=== PATIENT | male | born 1960 | race Caucasian/White ===

== ENCOUNTER 2017-03-30 13:55 | Emergency (ER) | payer OTHER ==
[~2017-03-30] VITALS: Ht 165.1 cm; Wt 108.2 kg
[2017-03-30] MEDS ORDERED: HTN (14:00)
[2017-03-30] MEDS ORDERED: METF500T4 PO (14:00)
[2017-03-30] MEDS ORDERED: SITA25 PO (14:00)
[2017-03-30] MEDS ORDERED: CHOLESTEROL (14:00)
[2017-03-30 14:08] LABS: GLUCOSE,POINT OF CARE 138 MG/DL (70-110)
[2017-03-30] MEDS ORDERED: SIMV10TA6 PO (14:57)
[2017-03-30] MEDS ORDERED: POVIDONE-IODINE 10% 15 ML SOLUTION UD TP ONE (15:00)
[2017-03-30] MEDS ORDERED: HYDROCODONE/ACETAMINOPHEN 5-325 MG TABLET PO ONE (15:00)
[2017-03-30 16:04] VITALS: BP 137/83
== END 2017-03-30 16:12 | disposition home or self-care (01) ==
LOC: EMS 13:58
DX: L03.012 Cellulitis of left finger (principal); I10 Essential (primary) hypertension; E11.9 Type 2 diabetes mellitus without complications; E78.00 Pure hypercholesterolemia, unspecified
CPT/HCPCS: 10060; 82962; 99283

== ENCOUNTER 2017-05-26 13:22 | Emergency (ER) | payer OTHER ==
[~2017-05-26] VITALS: Ht 165.1 cm; Wt 109.1 kg
[~2017-05-26 13:22] MED LIST: HTN; METF500T4 PO; SIMV10TA6 PO; SITA25 PO
[2017-05-26] MEDS ORDERED: FURO40 PO (13:41)
[2017-05-26] MEDS ORDERED: CARV6 PO (13:41)
[2017-05-26] MEDS ORDERED: LISI-660 PO (13:41)
[2017-05-26 13:47] LABS: GLUCOSE,POINT OF CARE 187 MG/DL (70-110)
[2017-05-26] MEDS ORDERED: PERTUSS(ACELL),DIPH,TET VAC/PF 0.5 ML VIAL IM ONE (16:00)
[2017-05-26 16:40] VITALS: BP 138/86
== END 2017-05-26 16:56 | disposition home or self-care (01) ==
LOC: EMS 13:23
DX: S60.352A Superficial foreign body of left thumb, initial encounter (principal); E11.9 Type 2 diabetes mellitus without complications; E78.00 Pure hypercholesterolemia, unspecified; I10 Essential (primary) hypertension; W45.8XXA Other foreign body or object entering through skin, initial encounter; Y93.89 Activity, other specified; Y92.89 Other specified places as the place of occurrence of the external cause; Y99.8 Other external cause status
CPT/HCPCS: 82962; 90471; 90715; 99284